=== PATIENT | female | born 1980 | race Caucasian/White ===

== ENCOUNTER 2025-06-16 19:26 | Emergency (ER) | payer OTHER ==
[~2025-06-16] VITALS: Ht 172.7 cm; Wt 65.1 kg
--- NOTE | 2025-06-16 20:40 | Physician Documentation ---
History of Present Illness ~ Chief Complaint: Blurred Vision Stated Complaint: EYE PAIN Time Seen by MD: 20:29 HPI This is a 44-year-old female who presents for evaluation of potential traumatic injury sustained when her son accidentally hit a plastic baseball into her left eye. She was pitching to a 6-year-old a softball size plastic ball which he hit and it went straight into her face hitting her in the left eye. She reports an immediate onset pain, and reports blurry vision. No pain with the eye motion. The particular palliating or aggravating factors. No curtain, no flashing lights. No dark brown curtain. Denies any other injury, denies loss of consciousness. There was no concern for tobacco, alcohol or illicit substances use Medication Reconciliation Allergies: Coded Allergies: No Known Allergies (Unverified , 06/16/25) Review of Systems ROS 10 point review of systems was performed and unless noted above in HPI is negative for acute process/complaint. Physical Exam Vital Signs: Temperature: 97.0, Source: Temporal, Heart Rate: 67, Respiratory Rate: 18, BP: 126/82, Pulse Oximetry: 98, Weight: 65.090 Physical Exam Physical examination: GENERAL: Awake, alert, oriented, GCS 15, no apparent distress, non-toxic appearing, answers questions, follows commands appropriately. Examined in bed 4., accompanied by spouse HEENT: Atraumatic, normocephalic, pupils equal, extraocular muscles intact Active gross movements, sclerae anicteric, mucus membranes moist, no stridor. NECK: Midline, no JVD CARDIOVASCULAR: Good skin perfusion without evidence of pallor, mottling. PULMONARY: Nonlabored, symmetric chest rise, no audible wheezing, no accessory muscle use, no respiratory distress, speaking in full sentences. GASTROINTESTINAL: Not distended. NEUROLOGIC: Lucid with normal mental status. Normal facial symmetry. Moves all extremities symmetrically and with purpose. No truncal ataxia. Speech is fluid without evidence of dysarthria or aphasia, no focal deficits appreciated. EXTREMITIES: Acute deformities Skin: warm, dry PSYCHIATRIC: Normal affect, normal insight, normal concentration. Focused exam: [Eye exam shows right eye you police 3 mm, reactive to light, left eye pupil is deformed, oval-shaped with a extending to the edge of the iris and fixed at approximately 5 mm of by 4 mm. There was no pain with the extraocular range of motion. There is conjunctival injection of the left eye at the medial canthus. Anterior chamber is clear, not shallow, there is no hypopyon or hyphema. Ultrasound of the eye was performed showing normal range of motion of the globe, no evidence of retinal detachment, vitreous detachment, retinal hemorrhage or vitreous hemorrhage. Normal diameter of the optic nerve. After much ado we were able to locate the last, they only flow risks and strip. The fluorescein exam shows no uptake, no Mirela sign. This facility does not have a slit-lamp, therefore I am not able to perform deta iled examination of the eye.] Progress Results/Orders Results/Orders Orders - MARY ASHBY DO Ct Head (06/16/25 20:38) Ct Facial Bones/Soft Tissue (06/16/25 20:38) Completed Orders - MARY ASHBY DO Fluorescein 1mg Ophthal Strip (Ful-Jaymie O (06/16/25 20:30) Proparacaine Ophth Solution (Alcaine Oph (06/16/25 20:30) Ct Head (06/16/25 20:38) Ct Facial Bones/Soft Tissue (06/16/25 20:38) Vital Signs 06/16/25 06/16/25 06/16/25 06/16/25 19:32 20:50 21:14 21:21 Temp 97.0 98.6 Pulse 67 70 71 Resp 18 16 16 B/P (MAP) 126/82 118/82 (94) Pulse Ox 98 98 99 O2 Delivery Room Air Medical Decision Making Findings Facility Status: ED Holds, E process The plan was discussed with the patient, who demonstrates clear understanding of the plan and is in agreement with the plan unless otherwise noted in the chart. All questions have been answered, all concerns were addressed unless otherwise documented. I was available throughout their ED stay for frequent reassessment and questions. Differential Diagnoses (considered and possible or likely): [Traumatic iritis, vitreous hemorrhage, vitreous detachment, retinal hemorrhage, retinal detachment, dislodged lens, globe rupture] ??Differential Diagnoses (considered and unlikely, not requiring evaluation currently): [Unlikely subdural, subarachnoid, unlikely face fracture] MDM Data Please see HPI for the following: Independent Historians and external Records Review. Historian: [Patient] Independent Historians: ?[Spouse] Medication Management: [Reviewed medication list] Social History and determinants: [Reviewed] Please see the body of the note for the following: Any independent interpretations of ECG, imaging studies. All vitals signs/haemodynamics, ordered tests were independently reviewed and interpreted by myself. Nursing triage complaint and vitals reviewed, additional nursing notes were r eviewed as available and I agree unless otherwise noted or documented in contradiction in the chart Vital Signs: Independently reviewed Labs: Independently interpreted Imaging: Independently interpreted Old Medical Records: Independently reviewed, see HPI for relevant summary and information Pulse Oximetry: [97%] interpreted as [normal on room air] by me [Recreation Attendant Supervisor: [Regular Rate, Regular rhythm, no ectopy, NSR] reviewed and interpreted by me] Additionally notably showing: [Hemodynamically stable. Head CT shows no acute intracranial abnormality.] Tests considered but not ordered include: [Hematologic workup has been considere d but does not appear to be necessary given mechanical nature of the injury.] Social Determinants of Health Impact: Patient was evaluated in [facility] [place] to healthcare due to below par ratio of patient to medical providers. [] Comorbid Conditions Impacting Present Evaluation and Care/Treatment: [None] Management Discussions with other Healthcare Providers: [Transfer center] Treatment and Disposition Medication Management (Given or considered): []. See EMR for details Consideration for Hospitalization/Escalation/Deescalation of Care: Transfer for higher level of care/ophthalmology consultation is necessary for further evaluation of her iris injury. ?ED Course:?[No clinical deterioration or improvement. Date: Jun 16, 2025 Time: 21:31 this case was discussed with the Dr. Rosa trevino at [facility] who accepted patient for transfer ER to ER. ] ?Shared decision making:?[] Code status:?FULL Please see the full Electronic Medical Record for full details of nursing documentation, medications list, other records of complete past medical history and conditions, vital signs, laboratory studies, and any radiologic study interpretations by radiologists. Portions of this note were completed using [employer] dictation software and as a result there may exist minor errors in spelling. I have reviewed elements of past family and social history and agree as included in note. Departure Disposition: 02 SHORT TERM HOSPITAL Impression: Primary Impression: Trauma to left eye Additional Impressions: Blurry vision, left eye Deformed pupil of left eye Condition: Guarded Referrals: NO PRIMARY CARE PROVIDER (PCP) Education Educated: Patient, Family Educated regarding: diagnosis, treatment, prognosis, need for follow up Critical Care Note Critical Care Note CRITICAL CARE TIME: [35] minutes Treatments/Evaluations: Close monitoring and treatment of unstable vital signs, cardiorespiratory, and neurologic status, while maintaining tight balance of fluid, respiratory, and cardiac interventions. This time includes discussing the case with the patient and the patients family. This time does not include all procedures stated elsewhere in this record. This time also includes reviewing old records, labs and radiological studies. This time includes examining and re- examining the patient. Additionally, this time also includes arranging care with admitting and consulting physicians. Signature Scribe Signature: No scribe Attestation: Date: Jun 16, 2025 Time: 20:40 This note accurately reflects clinical decisions, work performed by myself, DO SYMONE Izaguirre NICHOLAS M DO Jun 16, 2025 20:40
[2025-06-16] MEDS: fluorescein sod 1mg ophthalmic strip EACHEYE ONE (21:13)
[2025-06-16] MEDS: proparacaine 0.5% ophthalmic drops 15ml EACHEYE ONE (21:13)
--- NOTE | 2025-06-16 21:14 | RADIOLOGY REPORT ---
EXAM: CT CT HEAD INDICATION: Baseball versus face, headache TECHNIQUE: CT of the head without intravenous contrast. Radiation Dose : 1. Head: CT Dose: CTDI volume is 58.36 mGy. Dose-length product is 955.14 mGy*cm The dose indicators for CT are the volume Computed Tomography (CT) Dose Index (CTDIvol) and the Dose Length Product (DLP), and are measured in units of mGy and mGy-cm, respectively. These indicators are not patient dose, but values generated from the CT scanner acquisition factors. The report includes radiation exposure data for exposures received during this examination. COMPARISON: CT CT FACIAL BONES/SOFT TISSUE on DOS: 06/16/25 FINDINGS: There is no evidence of acute intracranial hemorrhage, extra-axial collection, mass effect, midline shift, herniation or hydrocephalus. The ventricles, sulci and cisterns are age appropriate. The gill-white differentiation is intact. The visualized paranasal sinuses and mastoid air cells are clear. The surrounding soft tissues and osseous structures are unremarkable. IMPRESSION: 1. No acute intracranial abnormality. Radiation optimization: All CT scans at this facility use at least one of these dose optimization techniques: automated exposure control mA and/or kV adjustment per patient size (includes targeted exams where dose is matched to clinical indication) or iterative reconstruction.
--- NOTE | 2025-06-16 21:35 | RADIOLOGY REPORT ---
CT CT FACIAL BONES/SOFT TISSUE INDICATION: Baseball versus face, headache, trauma L eye TECHNIQUE: Noncontrast axial images of the facial bones are then obtained along with coronal and sagittal reformatted images. All CT scans at this facility use dose modulation, iterative reconstruction, and/or weight based dosing when appropriate to reduce radiation dose to as low as reasonably achievable. COMPARISON: CT CT HEAD on DOS: 06/16/25 FINDINGS: FACIAL BONES: The nasal, lacrimal, inferior nasal aida, and palatine bones are intact. The vomer and perpendicular plate of the ethmoid are intact. The zygomatic bones are intact. The maxilla is intact. The mandible is intact. PARANASAL SINUSES: The bony margins of the paranasal sinuses are intact. There is no air fluid level within the sinuses. Mucous retention cysts of the right maxillary sinus. ORBITS: The bony margins of the orbits are intact. The extraconal space is intact without inflammatory stranding of the extraconal fat. The extraocular muscles are symmetric. The intraconal space including the optic canal and nerve are symmetric. 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 IMPRESSION: 1. No CT evidence of an acute facial fracture.
[2025-06-16 22:30] VITALS: BP 114/79; PULSE 66; RESP 16; TEMP 98.1; O2SAT 2
== END 2025-06-16 23:03 | disposition short-term general hospital (02) ==
LOC: ER 19:29
DX: S05.92XA Unspecified injury of left eye and orbit, initial encounter (principal); Q13.2 Other congenital malformations of iris; H53.8 Other visual disturbances; X58.XXXA Exposure to other specified factors, initial encounter; Y93.89 Activity, other specified; Y92.89 Other specified places as the place of occurrence of the external cause; Y99.8 Other external cause status
CPT/HCPCS: 70450; 70486; 99291